=== PATIENT | male | born 1990 | race Caucasian/White ===

== ENCOUNTER 2017-07-01 16:17 | Emergency (ER) | payer SELFPAY ==
[~2017-07-01] VITALS: Ht 188 cm; Wt 77.1 kg
[2017-07-01 17:03] VITALS: BP 122/76
[2017-07-01] MEDS ORDERED: BACITRACIN TOP OINT 1 UD PKG TOP ONE (20:15)
[2017-07-01] MEDS ORDERED: LIDOCAINE 1% HCL (LOCAL ANESTH.) INJ 20ML MDV IJ ONE (20:15)
[2017-07-01] MEDS ORDERED: TETANUS-DIPTH-ACEL PERTUSSIS 0.5ML SYRG IM ONE (20:15)
[2017-07-01] MEDS ORDERED: cefTRIAXone SOD 1,000 MG VL IM ONE (20:15)
== END 2017-07-01 21:12 | disposition home or self-care (01) ==
LOC: ER 16:23
DX: S51.012A Laceration without foreign body of left elbow, initial encounter (principal); S51.011A Laceration without foreign body of right elbow, initial encounter; S00.83XA Contusion of other part of head, initial encounter; Y08.89XA Assault by other specified means, initial encounter; Y93.89 Activity, other specified; Y92.89 Other specified places as the place of occurrence of the external cause; Y99.8 Other external cause status; Z23 Encounter for immunization
CPT/HCPCS: 12004; 90471; 90715; 96372; 99284; J0696; J2001